=== PATIENT | female | born 1960 | race African-American/Black ===

== ENCOUNTER 2017-01-26 00:59 | Emergency (ER) | payer OTHER ==
[~2017-01-26] VITALS: Ht 149.9 cm; Wt 70.0 kg
[~2017-01-26 00:59] MED LIST: BUDE6HFA INH; LORA1TAB PO; LOSA50TA20 PO
[2017-01-26] MEDS ORDERED: IPRATROPIUM/ALBUTEROL 0.5-3(2.5)MG/3ML NEB HHN ONE (02:45)
[2017-01-26 05:00] VITALS: BP 108/60
== END 2017-01-26 05:00 | disposition home or self-care (01) ==
LOC: ER 01:08
DX: J44.9 Chronic obstructive pulmonary disease, unspecified (principal); J40 Bronchitis, not specified as acute or chronic; F41.9 Anxiety disorder, unspecified; Z87.891 Personal history of nicotine dependence; Z88.5 Allergy status to narcotic agent; Z88.8 Allergy status to other drugs, medicaments and biological substances
CPT/HCPCS: 71010; 94640; 99283; Z7610; J7620

== ENCOUNTER 2017-02-10 10:44 | Inpatient (IN) | payer OTHER ==
[~2017-02-10] VITALS: Ht 149.9 cm; Wt 63.0 kg
[2017-02-10] MEDS ORDERED: IPRATROPIUM BROMIDE (0.02%) 0.5MG/2.5ML NEB HHN STA (10:57)
[2017-02-10] MEDS ORDERED: ALBUTEROL (0.083%) 2.5MG/3ML NEB HHN STA (10:57)
[2017-02-10] MEDS ORDERED: METHYLPREDNISOLONE SOD SUCC 125 MG/2 ML VIAL IV STA (10:57)
[2017-02-10] MEDS ORDERED: LEVOFLOXACIN 500MG PREMIX 100 ML IV ONE (11:00)
[2017-02-10] MEDS ORDERED: LEVOFLOXACIN 750MG PREMIX 150 ML IV ONE (11:00)
[2017-02-10] MEDS ORDERED: MAGNESIUM 2 G PREMIX 50 ML IV ONE (11:00)
[2017-02-10 11:33] LABS: BASOPHILS % 0.6 % (0.0-2.0); EOSINOPHILS % 1.3 % (0.0-5.0); HEMATOCRIT. 36.7 % (36.0-48.0); HEMOGLOBIN. 12.4 g/dL (12.0-16.0); LYMPHOCYTES % 14.5 % (20.0-50.0); MEAN CORPUSCULAR HEMOGLOBIN 27.8 pg (28.0-32.0); MEAN CORPUSCULAR VOLUME 81.9 fL (81.0-99.0); MEAN PLATELET VOLUME 7.5 fl (7.4-10.4); MONOCYTES % 5.4 % (2.0-8.0); NEUTROPHILS % 78.2 % (40.0-76.0); PLATELET 275 x1000/uL (130-400); RED BLOOD CELL COUNT 4.48 mill/uL (4.2-5.4); RED CELL DISTRIBUTION WIDTH 13.3 % (11.6-14.6)
[2017-02-10 11:46] LABS: CARBON DIOXIDE 28 mEq/L (21-32); CHLORIDE 106 mEq/L (98-107)
[2017-02-10 11:51] LABS: TROPONIN I < 0.02 ng/mL (0.00-0.04)
[2017-02-10 12:01] LABS: PARTIAL THROMBOPLASTIN TIME 24.4 sec (24.0-34.0); PROTHROMBIN TIME 10.1 sec
[2017-02-10] MEDS ORDERED: SODIUM CHLORIDE 0.9% 1000ML BAG (SEPSIS BOLUS) IV ONE (13:45)
[2017-02-10 17:00] VITALS: BP 130/67
[2017-02-10 20:00] VITALS: BP 124/73
[2017-02-10] MEDS ORDERED: GUAIFENESIN-DM 200MG-20MG/10ML UDC PO PRN (20:00)
[2017-02-10] MEDS ORDERED: CLONIDINE 0.1MG TABLET PO PRN (20:00)
[2017-02-10] MEDS ORDERED: ALBUTEROL (0.083%) 2.5MG/3ML NEB HHN PRN (20:00)
[2017-02-10] MEDS ORDERED: DOCUSATE SODIUM 100MG CAPSULE PO PRN (20:00)
[2017-02-10] MEDS ORDERED: ACETAMINOPHEN 325MG TABLET PO PRN (20:00)
[2017-02-10] MEDS ORDERED: DIPHENHYDRAMINE 50MG/ML VIAL IV PRN (20:00)
[2017-02-10] MEDS: IPRATROPIUM/ALBUTEROL 0.5-3(2.5)MG/3ML NEB HHN SCH (20:13)
[2017-02-10] MEDS: LOSARTAN POTASSIUM 50 MG TABLET PO SCH (20:53)
[2017-02-10] MEDS: METHYLPREDNISOLONE SOD SUCC 40 MG/ML VIAL IV SCH (20:53)
[2017-02-10] MEDS: FAMOTIDINE 20MG TABLET PO SCH (20:53)
[2017-02-10] MEDS: POTASSIUM CHLORIDE 20MEQ TABLET SR PO SCH (20:53)
[2017-02-10] MEDS: LORAZEPAM 1MG TABLET PO SCH (20:54)
[2017-02-11] VITALS: BP 103/65
[2017-02-11] MEDS: POTASSIUM CHLORIDE 20MEQ TABLET SR PO SCH
[2017-02-11] MEDS: IPRATROPIUM/ALBUTEROL 0.5-3(2.5)MG/3ML NEB HHN SCH ×6 (01:01→21:13)
[2017-02-11 04:00] VITALS: BP 117/75
[2017-02-11] MEDS: METHYLPREDNISOLONE SOD SUCC 40 MG/ML VIAL IV SCH ×3 (05:08→20:32)
[2017-02-11 05:12] LABS: HEMATOCRIT. 32.5 % (36.0-48.0); HEMOGLOBIN. 10.8 g/dL (12.0-16.0); MEAN CORPUSCULAR HEMOGLOBIN 27.5 pg (28.0-32.0); MEAN PLATELET VOLUME 8.2 fl (7.4-10.4); PLATELET 271 x1000/uL (130-400); RED BLOOD CELL COUNT 3.92 mill/uL (4.2-5.4); RED CELL DISTRIBUTION WIDTH 13.7 % (11.6-14.6)
[2017-02-11 06:35] LABS: CARBON DIOXIDE 25 mEq/L (21-32); CHLORIDE 111 mEq/L (98-107)
[2017-02-11 08:00] VITALS: BP 118/73
[2017-02-11] MEDS: LORAZEPAM 1MG TABLET PO SCH ×2 (08:24→20:31)
[2017-02-11] MEDS: LOSARTAN POTASSIUM 50 MG TABLET PO SCH (09:10)
[2017-02-11] MEDS: ENOXAPARIN 40MG/0.4ML SYR SUBCUT SCH (09:10)
[2017-02-11] MEDS: LEVOFLOXACIN 500MG TABLET PO SCH (11:00)
[2017-02-11 12:00] VITALS: BP 112/69
[2017-02-11 12:54] LABS: PLATELET ESTIMATE NORMAL
[2017-02-11 16:00] VITALS: BP 108/66
[2017-02-11] MEDS ORDERED: AZITHROMYCIN 500 MG TABLET PO SCH (18:30)
[2017-02-11 20:00] VITALS: BP 108/66
[2017-02-11] MEDS: FAMOTIDINE 20MG TABLET PO SCH (20:31)
[2017-02-12] VITALS: BP 112/72
[2017-02-12] MEDS: IPRATROPIUM/ALBUTEROL 0.5-3(2.5)MG/3ML NEB HHN SCH ×5 (00:26→16:24)
[2017-02-12 04:00] VITALS: BP 130/78
[2017-02-12] MEDS: METHYLPREDNISOLONE SOD SUCC 40 MG/ML VIAL IV SCH ×2 (05:01→11:58)
[2017-02-12 08:00] VITALS: BP 130/80
[2017-02-12] MEDS: LORAZEPAM 1MG TABLET PO SCH (08:39)
[2017-02-12] MEDS: ENOXAPARIN 40MG/0.4ML SYR SUBCUT SCH (08:39)
[2017-02-12] MEDS: LOSARTAN POTASSIUM 50 MG TABLET PO SCH (08:39)
[2017-02-12] MEDS: LEVOFLOXACIN 500MG TABLET PO SCH (11:54)
[2017-02-12 12:00] VITALS: BP 125/81
[2017-02-12 16:00] VITALS: BP 125/75
[2017-02-12 17:03] VITALS: BP 125/75
== END 2017-02-12 17:17 | disposition home or self-care (01) | DRG 191 ==
LOC: ER 10:48 → 7WST 11:55 → EDBEDREQ 11:58 → ENRESERV 15:32
PROVIDERS: ADMIT Internal Medicine Pulmonary Disease; ATTEND Internal Medicine Pulmonary Disease
DX: J44.1 Chronic obstructive pulmonary disease with (acute) exacerbation (principal); E87.2 Acidosis; E78.5 Hyperlipidemia, unspecified; E87.6 Hypokalemia; F41.9 Anxiety disorder, unspecified; I10 Essential (primary) hypertension; K21.9 Gastro-esophageal reflux disease without esophagitis; R00.0 Tachycardia, unspecified; Z87.891 Personal history of nicotine dependence; Z87.01 Personal history of pneumonia (recurrent); Z88.6 Allergy status to analgesic agent
CPT/HCPCS: 36415; 71010; 80048; 80053; 83605; 83735; 83880; 84484; 85025; 85610; 85730; 87040; 87086; 93005; 94640; 94644; 94664; 96361; 96365; 96375; 99291; J1650; J1956; J2920; J2930; J3475; J7030; J7611; J7620

== ENCOUNTER 2017-08-27 22:31 | Emergency (ER) | payer OTHER ==
[~2017-08-27] VITALS: Ht 149.9 cm; Wt 69.0 kg
[~2017-08-27 22:31] MED LIST changes: -BUDE6HFA INH
[2017-08-28] MEDS ORDERED: KETOROLAC 60MG/2ML VIAL IM ONE (03:45)
[2017-08-28 03:57] VITALS: BP 134/78
== END 2017-08-28 04:21 | disposition home or self-care (01) ==
LOC: ER 22:31
DX: S52.602A Unspecified fracture of lower end of left ulna, initial encounter for closed fracture (principal); S52.502A Unspecified fracture of the lower end of left radius, initial encounter for closed fracture; Y04.8XXA Assault by other bodily force, initial encounter; Y07.499 Other family member, perpetrator of maltreatment and neglect; Y93.89 Activity, other specified; Y92.098 Other place in other non-institutional residence as the place of occurrence of the external cause; I10 Essential (primary) hypertension; F41.9 Anxiety disorder, unspecified; J44.9 Chronic obstructive pulmonary disease, unspecified; J45.909 Unspecified asthma, uncomplicated; Z87.891 Personal history of nicotine dependence
CPT/HCPCS: 29125; 73080; 73090; 73110; 96372; 99284; J1885; 99283; A4565

== ENCOUNTER 2018-10-18 20:51 | Emergency (ER) | payer MEDICARE, OTHER, MEDICAID ==
[~2018-10-18] VITALS: Ht 162.6 cm; Wt 73.0 kg
[2018-10-18 23:19] LABS: BASOPHILS % 0.3 % (0.0-2.0); EOSINOPHILS % 3.3 % (0.0-5.0); LYMPHOCYTES % 25.7 % (20.0-50.0); MEAN CORPUSCULAR HEMOGLOBIN 27.8 pg (28.0-32.0); MEAN CORPUSCULAR VOLUME 83.4 fL (81.0-99.0); MEAN PLATELET VOLUME 7.9 fl (7.4-10.4); MONOCYTES % 8.4 % (2.0-8.0); NEUTROPHILS % 62.3 % (40.0-76.0); PLATELET 242 x1000/uL (130-400); RED BLOOD CELL COUNT 4.32 mill/uL (4.2-5.4); RED CELL DISTRIBUTION WIDTH 13.3 % (11.6-14.6)
[2018-10-18 23:26] LABS: CHLORIDE 109 mEq/L (98-107)
[2018-10-19 01:56] VITALS: BP 132/81
== END 2018-10-19 02:00 | disposition home or self-care (01) ==
LOC: ER 21:17 → CANBEDREQ 10-19 02:11
DX: R42 Dizziness and giddiness (principal); I10 Essential (primary) hypertension; I95.9 Hypotension, unspecified; J44.9 Chronic obstructive pulmonary disease, unspecified; Z87.891 Personal history of nicotine dependence; Z88.5 Allergy status to narcotic agent; Z88.6 Allergy status to analgesic agent
CPT/HCPCS: 36415; 71045; 84484; 93005; 99284

== ENCOUNTER 2024-11-06 15:19 | Emergency (ER) | payer OTHER, MEDICARE ==
[~2024-11-06] VITALS: Ht 157.5 cm; Wt 63.0 kg
[~2024-11-06 15:19] MED LIST changes: +ALBU2.5V13 IH; -LOSA50TA20 PO; +LOSA50TA41 PO; +PRED5TAB PO
[2024-11-06 15:21] VITALS: O2SAT 98
[2024-11-06 15:52] VITALS: BP 125/49; PULSE 88; RESP 14; TEMP 37.1; O2SAT 97
[2024-11-06] MEDS: ONDANSETRON HCL 4MG/2ML INJ IV ONE (16:09)
[2024-11-06] MEDS: SODIUM CHLORIDE 0.9% 1,000 ML IV ONE (16:09)
[2024-11-06 16:14] LABS: BASOPHILS % 0.1 % (0.0-2.0); HEMATOCRIT. 40.6 % (36.0-48.0); HEMOGLOBIN. 13.1 g/dL (12.0-16.0); LYMPHOCYTES % 7.1 % (20.0-50.0); MEAN CORPUSCULAR HEMOGLOBIN 26.3 pg (28.0-32.0); MEAN CORPUSCULAR HGB CONC 32.4 g/dL (31.0-37.0); MEAN CORPUSCULAR VOLUME 81.2 fL (81.0-99.0); MEAN PLATELET VOLUME 7.7 fl (7.4-10.4); NEUTROPHILS % 81.8 % (40.0-76.0); PLATELET 235 x1000/uL (130-400); RED CELL DISTRIBUTION WIDTH 14.3 % (11.6-14.6); WHITE BLOOD COUNT 7.3 x1000/uL (4.5-11.0)
[2024-11-06 16:18] LABS: CHLORIDE 105 mEq/L (98-107); POTASSIUM 3.6 mEq/L (3.5-5.1); SODIUM 141 mEq/L (136-145)
[2024-11-06 16:19] LABS: CARBON DIOXIDE 27 mEq/L (21-32)
[2024-11-06 16:20] LABS: CALCIUM 9.9 mg/dL (8.7-10.4)
[2024-11-06 16:24] LABS: GLUCOSE 130 mg/dL (70-105)
[2024-11-06 16:25] LABS: UREA NITROGEN BLOOD 12 mg/dL (9-23)
[2024-11-06 16:26] LABS: ALANINE AMINOTRANSFERASE 22 IU/L (10-49); ALBUMIN 4.3 g/dL (3.2-4.8); ASPARTATE AMINOTRANSFERASE 27 IU/L (<34); D-DIMER 0.39 mg/L FEU (<0.50); PARTIAL THROMBOPLASTIN TIME 23.9 sec (23.4-31.0); PROTHROMBIN TIME 10.9 sec (9.6-11.0)
[2024-11-06 16:27] LABS: BILIRUBIN DIRECT 0.1 mg/dL (<=3.0); BILIRUBIN TOTAL 0.5 mg/dL (0.1-1.0); PROTEIN TOTAL 7.4 g/dL (6.0-8.3)
[2024-11-06 16:41] LABS: TROPONIN I HIGH SENSITIVITY < 4 ng/L (3.0-34)
[2024-11-06] MEDS ORDERED: ONDA-239 PO (18:08)
== END 2024-11-06 16:39 | disposition home or self-care (01) ==
LOC: ER 15:19
DX: A08.4 Viral intestinal infection, unspecified (principal); R55 Syncope and collapse; J44.89 Other specified chronic obstructive pulmonary disease; I10 Essential (primary) hypertension; Z90.49 Acquired absence of other specified parts of digestive tract; Z88.5 Allergy status to narcotic agent; Z79.899 Other long term (current) drug therapy; Z87.19 Personal history of other diseases of the digestive system
CPT/HCPCS: 80076; 80048; 83880; 85025; 85379; 85610; 85730; 84484; 36415; 71045; 74176; 93005; 96361; 96374; 99285; J2405; J7030; Z7610